=== PATIENT | female | born 1980 | race Two or more races ===

== ENCOUNTER → 2017-09-08 | Emergency (ER) | payer OTHER ==
[~2017-09-08] VITALS: Ht 149.9 cm; Wt 59.0 kg
[~2017-09-08] MED LIST: BACTRIM DS TAB1 EACH PO; FOLIC ACID0.4 MG; MACROBID 100 M100 MG PO; MECLIZINE HCL25 MG PO; PEPCID40 MG PO; PHENERGAN25 MG PO; PRENATAL + DHA1 EAC1; PRENATAL 19 TAB1 TAB PO; SKELAXIN800 MG PO; ULTRACET PO
== END | disposition home or self-care (01) ==
LOC: ER 19:20
DX: J06.9 Acute upper respiratory infection, unspecified (principal); J04.0 Acute laryngitis

== ENCOUNTER 2018-04-27 07:07 | Outpatient (CLI) | payer OTHER | END 2018-04-27 07:15 | disposition home or self-care (01) | LOC: RAD 07:07 | DX: M79.18 Myalgia, other site (principal) ==

== ENCOUNTER 2020-07-14 09:54 | Emergency (ER) | payer OTHER ==
[~2020-07-14] VITALS: Ht 149.9 cm; Wt 72.6 kg
[2020-07-14] MEDS ORDERED: PRENATA CHEWAB1 EACH (10:13)
== END 2020-07-14 15:33 | disposition home or self-care (01) ==
LOC: ER 09:54
DX: O26.851 Spotting complicating pregnancy, first trimester (principal); O36.80X0 Pregnancy with inconclusive fetal viability, not applicable or unspecified; O34.11 Maternal care for benign tumor of corpus uteri, first trimester; D25.9 Leiomyoma of uterus, unspecified; Z3A.01 Less than 8 weeks gestation of pregnancy

== ENCOUNTER → 2020-08-06 | Outpatient (CLI) | payer OTHER ==
[~2020-08-06] MED LIST changes: +PRENATA CHEWAB1 EACH
== END | disposition home or self-care (01) ==
LOC: PRENATAL 13:00
PROVIDERS: ATTEND Obstetrics & Gynecology Maternal & Fetal Medicine
DX: O26.851 Spotting complicating pregnancy, first trimester (principal); O36.80X1 Pregnancy with inconclusive fetal viability, fetus 1; O09.511 Supervision of elderly primigravida, first trimester; Z36.89 Encounter for other specified antenatal screening; Z3A.09 9 weeks gestation of pregnancy

== ENCOUNTER 2022-05-11 13:06 | Inpatient (IN) | payer OTHER ==
[~2022-05-11] VITALS: Ht 124.5 cm; Wt 75.7 kg
[2022-05-11] MEDS ORDERED: FOLIC ACID20 MG PO (16:38)
== END 2022-05-14 09:07 | disposition home or self-care (01) | DRG 779 ==
LOC: LDR 13:06 → OB/GYN 13:06 → LDR 05-12 11:17 → OB/GYN 05-12 16:58
PROVIDERS: Obstetrics & Gynecology; ADMIT Obstetrics & Gynecology Maternal & Fetal Medicine; ATTEND Obstetrics & Gynecology Maternal & Fetal Medicine
PROC: 10D17Z9 Manual Extraction of Products of Conception, Retained, Via Natural or Artificial Opening (ICD-10-PCS; principal; 2022-05-12 09:00)
DX: O03.4 Incomplete spontaneous abortion without complication (principal); Z20.822 Contact with and (suspected) exposure to COVID-19